=== PATIENT | female | born 1950 | race Caucasian/White ===

== ENCOUNTER → 2016-09-30 | Outpatient (CLI) | payer MEDICARE, OTHER ==
[~2016-09-30] MED LIST: ASPI325T PO; ATEN100T PO; NYST10CR EXT; PROBCAP13 PO; TYLE325T5 PO; [UNRECOGNIZED DRUG - OTHER] PO
--- NOTE | 2016-09-30 09:11 | REP ---
BILATERAL KNEE SERIES: 10 views. HISTORY: Bilateral knee pain. Five views of the left knee are compared with May 05, 2016 prior study. There is medial compartment osteoarthritic spurring unchanged. Minimal lipping is seen in the lateral tibial plateau. Patellofemoral narrowing and spur formation is also noted as before. No erosive changes seen. Right knee radiographs are compared with the January 19, 2008 prior study. There is medial compartment osteoarthritis and early lipping in the lateral compartment. The medial compartment spurring is a little more prominent than on that 2007 prior study. There is patellofemoral spur formation also very slightly more prominent. No evidence of joint effusion or erosive change. 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
== END ==
LOC: M CLY 08:09
PROVIDERS: ATTEND Family Medicine
DX: M17.0 Bilateral primary osteoarthritis of knee (principal)
CPT/HCPCS: 73564; G0463

== ENCOUNTER → 2017-04-08 | Outpatient (CLI) | payer MEDICARE, OTHER ==
--- NOTE | 2017-04-08 09:39 | REPMRS ---
Patient History The patient states she had a clinical breast exam in 2016. Patient is postmenopausal. No known family history of cancer. Digital Mammo Screening Bilat: April 08, 2017 - Exam #: [id number] Bilateral CC and MLO view(s) were taken. Technologist: Morena Decker, Technologist Prior study comparison: March 30, 2016, bilateral digital mammo screening bilat performed at [facility]. November 26, 2015, left breast digital mammo diagnostic unilateral performed at [facility]. FINDINGS: There are scattered fibroglandular densities. There has been no change in the appearance of the mammogram from the prior studies. There is a moderate amount of residual fibroglandular tissue which is fairly symmetric. Left breast lower inner quadrant fat necrosiis, unchanged. There is no interval development of dominant mass, architectural distortion, or clustered microcalcification suggestive of malignancy. Large coarse benign appearing calcifications are present. Scattered lymph nodes are seen in the right axilla. No significant changes when compared with prior studies. ASSESSMENT: BI-RADS/ACR category 2 mammogram. Benign finding(s). Recommendation Routine screening mammogram in 1 year (for women over age 40). This mammogram was interpreted with the aid of an FDA-approved computer-aided dectection system. A. Negative x-ray reports should not delay biopsy if a dominant or clinically suspicious mass is present. B. Four to eight percent of cancers are not identified by mammography. C. Adenosis and dense breast may obscure an underlying neoplasm. Electronically Signed By: Eugene Jacques MD 04/08/17 0926
== END ==
LOC: M RAD 09:08
PROVIDERS: ATTEND Obstetrics & Gynecology
DX: Z12.31 Encounter for screening mammogram for malignant neoplasm of breast (principal)

== ENCOUNTER → 2018-02-04 | Outpatient (CLI) | payer MEDICARE, OTHER | LOC: M PLARAD 08:03 | DX: R41.3 Other amnesia (principal) | CPT/HCPCS: 70551 ==

== ENCOUNTER → 2018-02-16 | Outpatient (CLI) | payer MEDICARE, OTHER | LOC: M CLY 13:56 | DX: M25.519 Pain in unspecified shoulder (principal); S46.911A Strain of unspecified muscle, fascia and tendon at shoulder and upper arm level, right arm, initial encounter; X58.XXXA Exposure to other specified factors, initial encounter; Y92.9 Unspecified place or not applicable; Y93.9 Activity, unspecified; S42.001D Fracture of unspecified part of right clavicle, subsequent encounter for fracture with routine healing; I10 Essential (primary) hypertension | CPT/HCPCS: 71046; G0463 ==

== ENCOUNTER → 2018-02-18 | Outpatient (CLI) | payer MEDICARE, OTHER | LOC: M RAD 14:21 | DX: R41.3 Other amnesia (principal); R09.89 Other specified symptoms and signs involving the circulatory and respiratory systems (principal); I65.23 Occlusion and stenosis of bilateral carotid arteries | CPT/HCPCS: 93880 ==

== ENCOUNTER → 2018-04-07 | Outpatient (CLI) | payer MEDICARE, OTHER | LOC: M CLY 15:50 | DX: M25.70 Osteophyte, unspecified joint (principal); M17.0 Bilateral primary osteoarthritis of knee | CPT/HCPCS: 73564; G0463 ==

== ENCOUNTER → 2018-04-13 | Outpatient (CLI) | payer MEDICARE, OTHER | LOC: M RAD 15:05 | DX: Z12.31 Encounter for screening mammogram for malignant neoplasm of breast (principal); N60.31 Fibrosclerosis of right breast; N60.32 Fibrosclerosis of left breast | CPT/HCPCS: 77067 ==

== ENCOUNTER → 2019-04-14 | Outpatient (CLI) | payer MEDICARE, OTHER ==
[~2019-04-14] MED LIST changes: +ASPI81TA85 PO; +HYDR500C3 PO; +NYST100029 EXT; -NYST10CR EXT
--- NOTE | 2019-04-14 10:26 | REPMRS ---
Patient History The patient states she had a clinical breast exam in October 2018. No known family history of cancer. 3D TOMOSYNTHESIS WAS PERFORMED. [facility] lifetime risk for breast cancer is 4.9%. Digital Mammo Screening Bilat: April 14, 2019 - Exam #: [id number] Bilateral CC and MLO view(s) were taken. Technologist: Jackie Yanez, Technologist Prior study comparison: April 13, 2018, bilateral digital mammo screening bilat performed at [facility]. April 08, 2017, bilateral digital mammo screening bilat performed at [facility]. FINDINGS: The breast tissue is heterogeneously dense. This may lower the sensitivity of mammography. There has been no change in the appearance of the mammogram from the prior studies. There is a moderate amount of residual fibroglandular tissue which is fairly symmetric. There is no interval development of dominant mass, areas of architectural distortion, or clustered microcalcification typical of malignancy. Assessment: BI-RADS/ACR category 1 mammogram. Negative Mammogram. Recommendation Routine screening mammogram in 1 year (for women over age 40). This mammogram was interpreted with the aid of an FDA-approved computer-aided dectection system. Electronically Signed By: Braxton Londono MD 04/14/19 [id number]
== END ==
LOC: M RAD 09:04
PROVIDERS: ATTEND Obstetrics & Gynecology
DX: Z12.31 Encounter for screening mammogram for malignant neoplasm of breast (principal)

== ENCOUNTER → 2019-05-05 | Outpatient (REF) | payer MEDICARE, OTHER ==
[2019-05-05 12:11] LABS: HEMATOCRIT 46.1 % (36.0-47.0); HEMOGLOBIN 15.4 g/dl (12.0-15.5); MEAN CORPUSCULAR HEMOGLOBIN 38.7 pg (27.0-33.0); MEAN CORPUSCULAR HGB CONC 33.4 g/dl (32.0-36.5); PLATELET COUNT, AUTOMATED 483 10^3/uL (150-450); RED BLOOD COUNT 3.98 10^6/uL (4.00-5.40); WHITE BLOOD COUNT 10.7 10^3/uL (4.0-10.0)
[2019-05-05 12:15] LABS: MEAN CORPUSCULAR VOLUME 115.8 fl (80.0-96.0)
[2019-05-05 12:38] LABS: ALBUMIN 3.6 GM/DL (3.2-5.2); ALT/SGPT 17 U/L (12-78); BILIRUBIN,TOTAL 0.6 MG/DL (0.2-1.0); BLOOD UREA NITROGEN 12 MG/DL (7-18); CALCIUM LEVEL 9.3 MG/DL (8.8-10.2); CARBON DIOXIDE LEVEL 30 MEQ/L (21-32); CHLORIDE LEVEL 107 MEQ/L (98-107); CHOLESTEROL LEVEL 208 MG/DL (<200); CREATININE FOR GFR 0.69 MG/DL (0.55-1.30); GLOMERULAR FILTRATION RATE > 60.0 (>39); GLUCOSE, FASTING 82 MG/DL (70-100); HDL CHOLESTEROL 32 MG/DL (>40); LDL CHOLESTEROL 136 MG/DL (<100); NON-HDL-C 176 MG/DL; POTASSIUM SERUM 4.6 MEQ/L (3.5-5.1); SODIUM LEVEL 143 MEQ/L (136-145); TRIGLYCERIDES LEVEL 201 MG/DL (<150)
== END ==
LOC: M SFHCCLAY 07:40
PROVIDERS: ATTEND Nurse Practitioner Family
DX: I10 Essential (primary) hypertension (principal); N28.1 Cyst of kidney, acquired; E78.2 Mixed hyperlipidemia

== ENCOUNTER → 2019-06-23 | Outpatient (CLI) | payer MEDICARE, OTHER ==
[~2019-06-23] MED LIST changes: -ASPI81TA85 PO; -HYDR500C3 PO
--- NOTE | 2019-06-23 15:53 | REP ---
Digital diagnostic unilateral left breast mammography with CAD and focused left breast sonography: History: Palpable lump at 9 o'clock present times 2 weeks. Comparison mammography April 08, 2017, April 13, 2018, and April 14, 2019. Mammographic findings: Routine views of the left breast are augmented by magnified focal spot compression craniocaudad, MLO, and true mediolateral views. Standard mammographic views and 3-D tomography views demonstrate an oval-shaped area of benign stable fat necrosis calcification, 2.3 cm in greatest diameter, immediately deep to the skin marker affixed to the skin at the site where the patient describes the palpable lump. This benign lesion has been visible on all of the above mentioned prior studies and is unchanged in size. No other soft tissue density is seen. There are disbursed microcalcifications which are also unchanged in the left breast. Some secretory type calcifications are noted as well. No suspicious microcalcification is observed. Sonographic findings: Scanning at 9 o'clock in the left breast in the area the patient's palpable lump demonstrates multiple anechoic areas with calcific margins. These appear to be benign calcifications, again consistent with fat necrosis. There is also a shadowing peripherally calcified hypoechoic lesion 1.7 cm in greatest diameter corresponding to the palpable lump and mammographic opacity. No suspicious sonographic finding. Impression: BIRADS category 2 benign left breast imaging. Repeat screening mammography recommended in 1 year. Clinical follow-up is advised. This negative report should not dissuade one from biopsy of a palpable lump depending on its clinical characteristics. BIRADS 2: BI-RADS/ACR category 2 mammogram. Benign Findings. This mammogram was interpreted with the aid of an FDA-approved computer-aided detection system. The patient states she had a clinical breast exam in June 2019. The patient letter being requested is m#[email or web address]. This patient's estimated [facility] lifetime risk assessment for the breast cancer is 4.7 %. Electronically Signed by Isidro Ritchie MD 06/23/2019 07:47 P
== END ==
LOC: M RAD 10:57
PROVIDERS: ATTEND Nurse Practitioner Family
DX: N63.20 Unspecified lump in the left breast, unspecified quadrant (principal)
CPT/HCPCS: 76642; 77065; G0279

== ENCOUNTER 2019-08-10 13:39 | Day surgery (SDC) | payer MEDICARE, OTHER ==
[~2019-08-10] VITALS: Ht 152.4 cm; Wt 85.6 kg
[~2019-08-10 13:39] MED LIST changes: +ASPI81TA85 PO; +HYDR500C3 PO; +LIDOCAINE 1% MDV 20ML VIAL SQ PRN; +LR 1,000 ML IV ONE; +ceFAZolin SOD 2 GM in IV 1 EA IV ONE
[2019-08-10] MEDS ORDERED: PROPOFOL 200 MG/20 ML VIAL As Ordered ONE (13:52)
[2019-08-10] MEDS ORDERED: LIDOCAINE 2% INJ 100 MG/5 ML SDV (FOR ANES.) As Ordered ONE (13:52)
[2019-08-10] MEDS ORDERED: MIDAZOLAM INJ 2 MG/2 ML VIAL (J2250) As Ordered ONE (13:53)
[2019-08-10] MEDS ORDERED: fentaNYL 100 MCG/2 ML INJECTION (J3010) As Ordered ONE (13:53)
[2019-08-10] MEDS ORDERED: dexameTHASONE 4 MG/ML 1ML VIAL (J1100) As Ordered ONE (13:53)
[2019-08-10] MEDS ORDERED: ONDANSETRON 4MG/2ML VIAL (J2405) As Ordered ONE (13:53)
[2019-08-10] MEDS ORDERED: ROCURONIUM BROMIDE 50 MG/5 ML VIAL As Ordered ONE ×2 (13:53→19:49)
[2019-08-10] MEDS ORDERED: GLYCOPYRROLATE INJ 0.2 MG/ML 2 ML VIAL As Ordered ONE (14:01)
[2019-08-10 14:15] LABS: HEMATOCRIT 50.6 % (36.0-47.0); HEMOGLOBIN 17.3 g/dl (12.0-15.5); MEAN CORPUSCULAR HEMOGLOBIN 38.4 pg (27.0-33.0); MEAN CORPUSCULAR HGB CONC 34.2 g/dl (32.0-36.5); MEAN CORPUSCULAR VOLUME 112.4 fl (80.0-96.0); PLATELET COUNT, AUTOMATED 490 10^3/uL (150-450); WHITE BLOOD COUNT 11.6 10^3/uL (4.0-10.0)
[2019-08-10] MEDS ORDERED: SCOPOLAMINE 1MG TRANSDERMAL PATCH As Ordered ONE (14:53)
[2019-08-10] MEDS ORDERED: SCOPOLAMINE 1MG TRANSDERMAL PATCH TOP ONE (15:15)
[2019-08-10] MEDS ORDERED: SUGAMMADEX SODIUM 500 MG/5 ML VIAL (BRIDION) As Ordered ONE (17:13)
[2019-08-10] MEDS ORDERED: VASOPRESSIN INJ 20 UNITS/ML VIAL As Ordered ONE (17:49)
[2019-08-10] MEDS ORDERED: HYDROmorphone HCL 2 MG/ML 1ML VIAL (J1170) As Ordered ONE (18:56)
[2019-08-10] MEDS ORDERED: KETOROLAC 60 MG/2 ML VIAL (J1885) As Ordered ONE (20:03)
[2019-08-10] MEDS ORDERED: METHYLENE BLUE 0.5% (5MG/ML) 10 ML AMP (PROVAYBLUE)(Q9968 PER 1MG) As Ordered ONE (20:28)
[2019-08-10] MEDS ORDERED: ePHEDrine SULFATE 25 MG/5 ML(5MG/ML) SYRINGE As Ordered ONE (20:35)
[2019-08-10] MEDS ORDERED: MORPHINE 1MG/ML IN 0.9% NACL 100ML IV BAG As Ordered ONE (21:45)
[2019-08-10] MEDS ORDERED: ONDANSETRON 4MG/2ML VIAL (J2405) IV PRN (22:15)
[2019-08-10] MEDS ORDERED: oxyCODONE 5MG TAB PO PRN (22:15)
[2019-08-10] MEDS ORDERED: LR 1,000 ML IV SCH (22:15)
[2019-08-10] MEDS ORDERED: fentaNYL 100 MCG/2 ML INJECTION (J3010) IV PRN (22:15)
[2019-08-10 23:28] VITALS: BP 124/67
[2019-08-10] MEDS: LR 1,000 ML IV SCH (23:30)
[2019-08-11 00:08] VITALS: BP 110/58
[2019-08-11] MEDS ORDERED: MORPHINE 1MG/ML IN 0.9% NACL 100ML IV BAG IV PRN (00:30)
[2019-08-11] MEDS ORDERED: EPIDURAL/PCA KEYS XX PRN (00:30)
[2019-08-11] MEDS ORDERED: NALOXONE INJ 0.4 MG/1 ML VIAL (J2310) IV PRN (00:30)
[2019-08-11] MEDS ORDERED: NALBUPHINE HCL 10 MG/ML AMP (J2300) IV PRN (00:30)
[2019-08-11] MEDS ORDERED: diphenhydrAMINE INJ 50MG/ML VIAL (J1200) IV PRN (00:30)
[2019-08-11] MEDS ORDERED: NS 1,000 ML IV SCH (00:30)
[2019-08-11] MEDS ORDERED: IBUPROFEN 600 MG TAB PO PRN (01:00)
[2019-08-11 01:15] VITALS: BP 110/58
[2019-08-11 02:20] VITALS: BP 112/64
[2019-08-11] MEDS: LR 1,000 ML IV SCH (05:55)
[2019-08-11 06:00] VITALS: BP 115/70
[2019-08-11] MEDS ORDERED: NORCO, ANEXSIA 5/325MG TABLET (HYDROcodone/ACETAMINOPHEN) PO PRN (06:00)
[2019-08-11 06:48] LABS: MEAN CORPUSCULAR HEMOGLOBIN 38.4 pg (27.0-33.0); MEAN CORPUSCULAR HGB CONC 33.1 g/dl (32.0-36.5); PLATELET COUNT, AUTOMATED 444 10^3/uL (150-450); RED BLOOD COUNT 3.88 10^6/uL (4.00-5.40); WHITE BLOOD COUNT 16.7 10^3/uL (4.0-10.0)
[2019-08-11 06:50] LABS: HEMOGLOBIN 14.9 g/dl (12.0-15.5)
[2019-08-11 08:00] VITALS: BP 126/63
[2019-08-11] MEDS ORDERED: HYDROXYUREA 500 MG CAP PO SCH (09:00)
[2019-08-11] MEDS ORDERED: atenoloL 50 MG TAB PO SCH (09:00)
[2019-08-11 09:04] VITALS: BP 121/62
--- NOTE | 2019-08-14 07:42 | RO ---
DATE OF PROCEDURE: 08/10/2019 PREOPERATIVE DIAGNOSIS: Symptomatic prolapse. POSTOPERATIVE DIAGNOSIS: Symptomatic prolapse. PROCEDURE: Total vaginal hysterectomy, sacrospinous suspension, anterior and posterior repair, and cystourethroscopy. SURGEON: Dr. Jaymie Hoff FINISHER FINE DIAMOND DIES: None. ANESTHESIA: General endotracheal anesthesia. BRIEF DESCRIPTION OF PROCEDURE AND FINDINGS: Nia was brought to the operating room where sufficient general anesthesia was induced. She was prepped, draped, and positioned in the usual sterile fashion, the cervix grasped with single-tooth tenacula, and the bladder emptied. A circumferential incision was then made around the base of the cervix with sharp and blunt dissection then used to isolate the cardinal ligaments, which were clamped, transected, and ligated bilaterally. We then continued the dissection posteriorly to enter the peritoneal cavity. The uterosacrals were quite attenuated. They were clamped, transected, and ligated and, of course, secured for the cuff. The dissection was then continued anteriorly. We were readily able to get in for the bladder flap, and the uterine vasculature was carefully clamped, transected, and ligated working sequentially along the lateral aspect of the uterus as is typical. As we approached the fundus, I could see some bowel and feel some adhesions at the epiploicae, the omentum, and the bowel to the fundus. We did also see that the round ligament and uterus were normal in appearance but there was also some scar tissue bilaterally. As we approached the fundus, it was clear that there did not appear to be normal tubal tissue at the cornu. The patient had a bilateral tubal ligation some 40-odd years ago, so did not know if she had a salpingectomy or not, but did have an open incision for that. I would expect, though I, of course, cannot know, but I would expect that these adhesions were related to that and certainly there was scar tissue rather than tubal-looking tissue at the cornu of the uterus. I was able to take down the adhesions with just cold scissors with careful dissection. There did not appear to be any injury to the bowel or any significant bleeding with these adhesions. We were able to deliver the uterus, of course, with cervix intact. I then palpated and could feel some tiny either scar tissue or atrophic ovaries. We could not really get a view of them at all, so a decision was made not to laura after the ovaries as had been discussed with this 69-year-old patient preoperatively. Angle stitches of #0 Vicryl were taken for control of the vasculature, and the peritoneum was dissected away from the rectovaginal tissues and the anterior vaginal and perivesical tissues so that we could close the peritoneum, which was done with #2-0 Vicryl. We then dissected anteriorly for the anterior repair. There was definitely redundancy there. I injected with diluted vasopressin and, working from the cuff, incised the anterior vaginal wall, removed two triangles of tissue on the sides, and did some pursestring and [id number]-ac-unad stitches for an anterior repair, which was done due this redundancy prior to the sacrospinous suspension based on using Allis' to ligament to see what kind of support we were likely to get. We then dissected posteriorly to dissect out the superior aspect of the rectovaginal septum. We then worked laterally towards the patient's right side to the sacrospinous ligament. We cleared it fully so that we could displace the bowel medially and the other tissues, etc. Then we placed the Anchorsure anchors. We used two Anchorsure anchors. Each of those Anchorsure anchors had two #2-0 Maxon sutures so that we had four sutures for the four-point suspension of the vaginal apex. We then had the posterior vagina dissected low enough where we intended to go by using an Allis, which we had placed up to the ligament. Then anteriorly, we reapproximated those tissues so there was a T there and then brought those tissues up so that redundancy would be removed. The sutures were then brought through and through the vaginal epithelium at the intended sites, again based on measuring using Allis clamps to position the tissues so we could have the appropriate measuring for the four-point suspension. Then, after we had all four sutures through and placed, we then closed the cuff and the T anteriorly of the vaginal epithelium using #2-0 Vicryl. Then we brought up a single throw on each of those sutures and then did cystourethroscopy. We did see a little bit of bruising over the urethra from the retractor but no evidence of suture or injury to the bladder. With those sutures down under tension, we had passage of methylene blue through the ureteral orifices, so we had jets of urine and no evidence of bladder injury and some evidence of bladder support from the surgery. Then we emptied the bladder again. We brought down the rest of the throws of the Maxon on each of those four sutures, trimmed them all off. There was still a fairly sizable posterior defect and separation of the rectovaginal septum from the perineal body and some laxity at the introitus, so we removed an inverted triangle of tissue from the perineal body, dissected posteriorly, vertically in the posterior midline vagina. I then unroofed the rectovaginal septum. Some palpable defects were present. We did [id number] closure, correcting those defects, with #2-0 Vicryl and reconnection of the rectovaginal septum to the peroneal body. We also strengthened the peroneal body using #0 Vicryl for support and deep stitches at the perineum. Having closed that and re-supported the posterior repair, we trimmed the redundant tissues and closed the vaginal epithelium with #2-0 Vicryl with good approximation and hemostasis achieved. Exam after this showed good anterior support, correction of the cystocele, correction of the rectocele, and good apical support. Vaginal packing was then placed and a Green catheter. A rectal exam undertaken confirmed the absence of injury to the rectum. The procedure was then ended. ESTIMATED BLOOD LOSS FOR THE PROCEDURE: About 150 mL. FLUID REPLACEMENT: Crystalloid. COMPLICATIONS: None. CONDITION AND DISPOSITION: Nia tolerated procedure well and was recovering in the recovery room in good condition.
== END 2019-08-11 10:10 | disposition home or self-care (01) ==
LOC: M SDC 13:39 → M MS5PR 23:13 → M SDC 08-11 10:10
PROVIDERS: ATTEND Obstetrics & Gynecology
DX: N81.9 Female genital prolapse, unspecified (principal); N72 Inflammatory disease of cervix uteri; D25.1 Intramural leiomyoma of uterus; N80.0 Endometriosis of uterus; I10 Essential (primary) hypertension; E11.9 Type 2 diabetes mellitus without complications; E78.00 Pure hypercholesterolemia, unspecified; G47.33 Obstructive sleep apnea (adult) (pediatric); E66.9 Obesity, unspecified; D64.9 Anemia, unspecified; D45 Polycythemia vera; R06.83 Snoring; M12.9 Arthropathy, unspecified; Z79.899 Other long term (current) drug therapy; Z79.82 Long term (current) use of aspirin; Z78.0 Asymptomatic menopausal state; Z98.51 Tubal ligation status; Z68.37 Body mass index [BMI] 37.0-37.9, adult
CPT/HCPCS: 36415; 58260; 85027; 86850; 86900; 86901; 88307; 96374; C1713; J0690; J1100; J1170; J1885; J2250; J2405; J3010; Q9968

== ENCOUNTER → 2019-11-16 | Outpatient (REF) | payer MEDICARE, OTHER ==
[~2019-11-16] MED LIST changes: -LIDOCAINE 1% MDV 20ML VIAL SQ PRN; -LR 1,000 ML IV ONE; -ceFAZolin SOD 2 GM in IV 1 EA IV ONE
[2019-11-16 13:08] LABS: CHOLESTEROL RISK RATIO 7.2 (<5); THYROID STIMULATING HORMONE 2.55 uIU/ML (0.358-3.740)
== END ==
LOC: M SFHCCLAY 07:17
PROVIDERS: ATTEND Nurse Practitioner Family
DX: E78.2 Mixed hyperlipidemia (principal); I10 Essential (primary) hypertension

== ENCOUNTER 2020-07-03 17:22 | Emergency (ER) | payer MEDICARE, OTHER ==
[~2020-07-03] VITALS: Ht 152.4 cm; Wt 86.7 kg
[~2020-07-03 17:22] MED LIST changes: -REST0.05; -TERB250T12
[2020-07-03] MEDS ORDERED: REST0.05 (17:30)
[2020-07-03] MEDS ORDERED: TERB250T12 (17:30)
[2020-07-03 17:55] VITALS: BP 142/73
== END 2020-07-03 18:05 | disposition home or self-care (01) ==
LOC: M ED 17:22
DX: I82.621 Acute embolism and thrombosis of deep veins of right upper extremity (principal); I10 Essential (primary) hypertension; K21.9 Gastro-esophageal reflux disease without esophagitis; D45 Polycythemia vera; Z79.82 Long term (current) use of aspirin; Z79.899 Other long term (current) drug therapy

== ENCOUNTER → 2020-07-03 | Outpatient (CLI) | payer MEDICARE, OTHER ==
[~2020-07-03] MED LIST changes: -ASPI81TA85 PO; +ASPI81TA86 PO; +REST0.05; +TERB250T12
--- NOTE | 2020-07-03 16:36 | REP ---
INDICATION: R/O DVT; ACUTE EMBOLISM . COMPARISON: None. TECHNIQUE: Duplex venous scanning right upper extremity venous system. FINDINGS: The right internal jugular, axillary, brachial, and basilic veins are anechoic and compressible in the right upper extremity. Color flow imaging is homogeneous. Spectral Doppler interrogation is unremarkable. There is nonocclusive thrombus visible in the right cephalic vein extending from its junction with the median cubital vein at the antecubital fossa proximally to mid arm level. No occlusive thrombosis is seen.There is no other evidence of right upper extremity venous thrombosis. IMPRESSION: Nonocclusive venous thrombosis is seen in the right cephalic vein. No other evidence of right upper extremity venous thrombosis is seen.. <Electronically signed by Colin Ritchie > 07/03/20 [id number]
== END ==
LOC: M RAD 15:33
PROVIDERS: ATTEND Nurse Practitioner Family
DX: I82.621 Acute embolism and thrombosis of deep veins of right upper extremity (principal)

== ENCOUNTER → 2020-11-11 | Outpatient (CLI) | payer MEDICARE, OTHER ==
[~2020-11-11] MED LIST changes: +REST0.05; +TERB250T12
--- NOTE | 2020-11-11 13:09 | REPMRS ---
Patient History The patient states she has not had a clinical breast exam in over a year. No known family history of cancer. Digital Woman Screen Mammo: November 11, 2020 - Exam #: [id number] Bilateral CC and MLO view(s) were taken. Technologist: Tosha Wu, Technologist Prior study comparison: April 14, 2019, bilateral digital mammo screening bilat, performed at [facility]. April 13, 2018, bilateral digital mammo screening bilat, performed at [facility]. April 08, 2017, bilateral digital mammo screening bilat, performed at [facility]. FINDINGS: There are scattered fibroglandular densities. The Volpara volumetric breast density category is:B. There has been no change in the appearance of the mammogram from the prior studies. There is a mild amount of scattered fibroglandular density which is fairly symmetric. There is no interval development of dominant mass, architectural distortion, or grouped microcalcification suggestive of malignancy. 3-D tomosynthesis shows no additional findings. Assessment: BI-RADS/ACR category 1 mammogram. Negative Mammogram. Recommendation Routine screening mammogram of both breasts in 1 year (for women over age 40). This patient's [facility] Lifetime Breast Cancer Risk is estimated at 4.4 %. This mammogram was interpreted with the aid of an FDA-approved computer-aided dectection system. Electronically Signed By: Colin Ritchie MD 11/11/20 4116
== END ==
LOC: M WHC 11:17
PROVIDERS: ATTEND Obstetrics & Gynecology
DX: Z12.31 Encounter for screening mammogram for malignant neoplasm of breast (principal)

== ENCOUNTER → 2021-08-18 | Outpatient (REF) | payer MEDICARE, OTHER ==
[~2021-08-18] MED LIST changes: -TERB250T12; +TERB250T91
[2021-08-18 11:59] LABS: BASO % 0.5 % (0.0-1.0); EOS % 0.3 % (0.0-3.0); HEMATOCRIT 36.3 % (36.0-47.0); HEMOGLOBIN 12.5 g/dl (12.0-15.5); LYMPH # 1.6 10^3/uL (1.5-5.0); LYMPH % 21.9 % (24.0-44.0); MEAN CORPUSCULAR HEMOGLOBIN 46.5 pg (27.0-33.0); MEAN CORPUSCULAR HGB CONC 34.4 g/dl (32.0-36.5); MONO # 0.5 10^3/uL (0.0-0.8); MONO % 6.8 % (2.0-8.0); NEUTROPHILS # 5.2 10^3/uL (1.5-8.5); NEUTROPHILS % 69.4 % (36.0-66.0); PLATELET COUNT, AUTOMATED 437 10^3/uL (150-450); RED BLOOD COUNT 2.69 10^6/uL (4.00-5.40); WHITE BLOOD COUNT 7.5 10^3/uL (4.0-10.0)
[2021-08-18 12:01] LABS: MEAN CORPUSCULAR VOLUME 134.9 fl (80.0-96.0)
[2021-08-18 12:15] LABS: ANISOCYTOSIS 1+; POLYCHROMASIA 1+
[2021-08-18 12:16] LABS: PLATELET ESTIMATE NORMAL (NORMAL)
[2021-08-18 12:32] LABS: ALBUMIN 3.6 GM/DL (3.2-5.2); ALT/SGPT 46 U/L (12-78); BILIRUBIN,TOTAL 0.4 MG/DL (0.2-1.0); BLOOD UREA NITROGEN 14 MG/DL (7-18); CALCIUM LEVEL 9.1 MG/DL (8.8-10.2); CARBON DIOXIDE LEVEL 32 MEQ/L (21-32); CHLORIDE LEVEL 108 MEQ/L (98-107); CHOLESTEROL LEVEL 216 MG/DL (<200); CHOLESTEROL RISK RATIO 5.684 (<5); FREE T4 0.96 NG/DL (0.76-1.46); GLOMERULAR FILTRATION RATE > 60.0 (>39); GLUCOSE, FASTING 87 MG/DL (70-100); HDL CHOLESTEROL 38 MG/DL (>40); LDL CHOLESTEROL 143 MG/DL (<100); NON-HDL-C 178 MG/DL; POTASSIUM SERUM 4.6 MEQ/L (3.5-5.1); SODIUM LEVEL 142 MEQ/L (136-145); TOTAL PROTEIN 6.9 GM/DL (6.4-8.2); TRIGLYCERIDES LEVEL 177 MG/DL (<150)
== END ==
LOC: M SFHCCLAY 07:12
PROVIDERS: ATTEND Nurse Practitioner Family
DX: Z00.00 Encounter for general adult medical examination without abnormal findings (principal); I10 Essential (primary) hypertension; E78.2 Mixed hyperlipidemia; E66.01 Morbid (severe) obesity due to excess calories; G47.33 Obstructive sleep apnea (adult) (pediatric)

== ENCOUNTER → 2023-03-11 | Outpatient (CLI) | payer MEDICARE, OTHER | LOC: M RAD 06:44 | PROVIDERS: ATTEND Internal Medicine Hematology & Oncology | DX: D47.3 Essential (hemorrhagic) thrombocythemia (principal); D45 Polycythemia vera ==

== ENCOUNTER → 2023-05-25 | Outpatient (CLI) | payer MEDICARE, OTHER | LOC: M RAD 06:56 | PROVIDERS: ATTEND Nurse Practitioner Family | DX: I83.893 Varicose veins of bilateral lower extremities with other complications (principal) ==

== ENCOUNTER → 2023-09-15 | Outpatient (CLI) | payer MEDICARE, OTHER | LOC: M CLY 14:47 | PROVIDERS: ATTEND Nurse Practitioner Family | DX: M85.88 Other specified disorders of bone density and structure, other site (principal); M47.816 Spondylosis without myelopathy or radiculopathy, lumbar region; M54.32 Sciatica, left side ==

== ENCOUNTER → 2023-10-05 | Outpatient (CLI) | payer MEDICARE, OTHER | LOC: M RAD 09:10 | PROVIDERS: ATTEND Nurse Practitioner Family | DX: M47.816 Spondylosis without myelopathy or radiculopathy, lumbar region (principal); M51.27 Other intervertebral disc displacement, lumbosacral region ==

== ENCOUNTER → 2024-02-21 | Outpatient (CLI) | payer MEDICARE, OTHER | LOC: M CLY 13:37 | PROVIDERS: ATTEND Physician Assistant | DX: M53.84 Other specified dorsopathies, thoracic region (principal); M25.561 Pain in right knee; S82.491A Other fracture of shaft of right fibula, initial encounter for closed fracture; W19.XXXA Unspecified fall, initial encounter; Y92.9 Unspecified place or not applicable; Y93.9 Activity, unspecified; Y99.9 Unspecified external cause status ==

== ENCOUNTER → 2024-05-01 | Outpatient (REF) | payer MEDICARE, OTHER ==
[2024-05-01 11:41] LABS: BASO # 0.1 10^3/uL (0.0-0.2); BASO % 0.6 % (0.0-1.0); EOS # 0.1 10^3/uL (0.0-0.5); EOS % 0.5 % (0.0-3.0); HEMATOCRIT 44.3 % (36.0-47.0); LYMPH # 1.6 10^3/uL (1.5-5.0); LYMPH % 11.9 % (24.0-44.0); MEAN CORPUSCULAR HEMOGLOBIN 42.7 pg (27.0-33.0); MEAN CORPUSCULAR HGB CONC 33.9 g/dl (32.0-36.5); MONO # 0.8 10^3/uL (0.0-0.8); MONO % 5.5 % (2.0-8.0); NEUTROPHILS # 10.9 10^3/uL (1.5-8.5); NEUTROPHILS % 79.6 % (36.0-66.0); PLATELET COUNT, AUTOMATED 798 10^3/uL (150-450); RED BLOOD COUNT 3.51 10^6/uL (4.00-5.40); WHITE BLOOD COUNT 13.6 10^3/uL (4.0-10.0)
[2024-05-01 11:59] LABS: MEAN CORPUSCULAR VOLUME 126.2 fl (80.0-96.0)
[2024-05-01 12:00] LABS: HEMOGLOBIN A1c 4.9 % (4.0-6.0)
[2024-05-01 12:16] LABS: ALBUMIN 3.9 G/DL (3.2-5.2); ALKALINE PHOSPHATASE 94 U/L (46-116); ALT/SGPT 26 U/L (7.0-40); AST/SGOT 27 U/L (<34); BILIRUBIN,TOTAL 0.7 MG/DL (0.3-1.2); BLOOD UREA NITROGEN 14 MG/DL (9-23); CALCIUM LEVEL 9.7 MG/DL (8.3-10.6); CARBON DIOXIDE LEVEL 30 MMOL/L (20-31); CHLORIDE LEVEL 106 MMOL/L (98-107); CHOLESTEROL LEVEL 210 MG/DL (<200); CHOLESTEROL RISK RATIO 6.15 (<5); GLOMERULAR FILTRATION RATE > 60.0 (>39); GLUCOSE, FASTING 84 MG/DL (74-106); HDL CHOLESTEROL 34.1 MG/DL (>40); LDL CHOLESTEROL 134.3 MG/DL (<100); MAGNESIUM LEVEL 1.9 MG/DL (1.8-2.4); NON-HDL-C 175.9 MG/DL; SODIUM LEVEL 137 MMOL/L (136-145); TOTAL PROTEIN 7.3 G/DL (5.7-8.2); TRIGLYCERIDES LEVEL 208 MG/DL (<150)
[2024-05-01 12:19] LABS: FREE T4 1.21 NG/DL (0.89-1.76)
[2024-05-01 12:20] LABS: THYROID STIMULATING HORMONE 2.261 uIU/ML (0.55-4.78)
[2024-05-01 13:20] LABS: PLATELET ESTIMATE INCREASED (NORMAL)
[2024-05-01 13:21] LABS: ANISOCYTOSIS 1+; POIKILOCYTOSIS 1+; POLYCHROMASIA 2+
== END ==
LOC: M SFHCCLAY 08:39
PROVIDERS: ATTEND Nurse Practitioner Family
DX: Z00.00 Encounter for general adult medical examination without abnormal findings (principal); I10 Essential (primary) hypertension; E78.2 Mixed hyperlipidemia; E66.01 Morbid (severe) obesity due to excess calories; G47.33 Obstructive sleep apnea (adult) (pediatric); I83.893 Varicose veins of bilateral lower extremities with other complications; Z13.1 Encounter for screening for diabetes mellitus; D45 Polycythemia vera; Z78.0 Asymptomatic menopausal state